=== PATIENT | female | born 1985 | race Caucasian/White ===

== ENCOUNTER → 2018-03-14 | Outpatient (CLI) | payer OTHER ==
[~2018-03-14] MED LIST: CALC200T3 PO; IBUP-1222 PO; NIFE30TA2 PO; OMEG500C3 PO; OXYC-302 PO; PREN1TAB60 PO
== END | disposition home or self-care (01) ==
LOC: CFH 12:25
PROVIDERS: ATTEND Obstetrics & Gynecology Gynecology
DX: N60.01 Solitary cyst of right breast (principal); R92.8 Other abnormal and inconclusive findings on diagnostic imaging of breast

== ENCOUNTER 2021-01-15 17:42 | Emergency (ER) | payer OTHER ==
[~2021-01-15] VITALS: Ht 172.7 cm; Wt 95.2 kg
[~2021-01-15 17:42] MED LIST changes: -OXYC-302 PO; +OXYC1TAB14 PO
--- NOTE | 2021-01-15 17:58 | NUR ---
patient arrives with with allergic reaction that started at lunch after she ate salad with peanut dressing, she is unsure what part she is allergic to. light headed. dizzy. nausea. diarrea. shakey. strange.
[2021-01-15] MEDS ORDERED: DEXAMETHASONE 4 MG TABLET ONE (18:09)
[2021-01-15] MEDS ORDERED: FAMOTIDINE 20 MG TABLET ONE (18:09)
[2021-01-15] MEDS ORDERED: DEXAMETHASONE 4 MG TABLET PO ONE (18:30)
[2021-01-15] MEDS ORDERED: FAMOTIDINE 20 MG TABLET PO ONE (18:30)
[2021-01-15 18:31] VITALS: BP 170/107
== END 2021-01-15 19:34 | disposition home or self-care (01) ==
LOC: ED 19:19
DX: L50.0 Allergic urticaria (principal)
CPT/HCPCS: 99283